=== PATIENT | male | born 1995 | race Caucasian/White ===

== ENCOUNTER 2022-10-04 00:10 | Emergency (ER) | payer OTHER, SELFPAY ==
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
[2022-10-04 00:18] VITALS: BP 130/70; BP 132/92; PULSE 87; PULSE 90; RESP 18; TEMP 36.5; O2SAT 98; BMI 22.4
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
--- OUTSIDE RECORDS SUMMARY | 2022-10-04 01:14 | XMS_ITS ---
:1995 Author Care Team Providers Name Role Phone [phone] Primary Care Provider Unavailable Allergies Code Code System Name Reaction Severity Status Onset NKDA ? Medications Name Status Start Date Stop Date ? ? ibuprofen 800 mg tablet Active ? Not avai lable Take 1 tablet 3 times a day by oral route for 10 days. Problems Name Status Onset Date Source ? Wrist Joint Pain Active ? Encounter Procedures Date Name Performed by ? 04/30/2016 XR, Wrist Information not avai lable Notes: none Results Lab Results None recorded. Past Encounters None recorded. Social History Tobacco Smoking Status Never Smoker Vaccine List None recorded. Plan of Care Reminders Provider Appointments None recorded. ? ? Lab None recorded. ? ? Referral None recorded. ? ? Procedures None recorded. ? ? Surgeries None recorded. ? ? Imaging None recorded. ? ? Vitals Height Weight BMI Blood Pressure 6 ft 157 lbs 21.3 kg/m2 120/70 mm[Hg]
--- NOTE | 2022-10-04 02:29 | PC.NURSE ---
pt discharged by Salvador Whitney. pt father picked pt up from [facility] [place]. security staff assisted pt's father and Dr. Whitney in discharge process. pt ambulatory at this time
== END 2022-10-04 02:31 | disposition home or self-care (01) ==
PROVIDERS: Emergency Provider Emergency Medicine
DX: S01.512A Laceration without foreign body of oral cavity, initial encounter (principal); V47.5XXA Car driver injured in collision with fixed or stationary object in traffic accident, initial encounter; Y93.89 Activity, other specified; Y92.415 Exit ramp or entrance ramp of street or highway as the place of occurrence of the external cause; Y99.9 Unspecified external cause status
CPT/HCPCS: 70450; 72125; 99282; 99284